=== PATIENT | female | born 1970 | race Two or more races ===

== ENCOUNTER 2017-08-29 11:45 | Emergency (ER) | payer OTHER ==
[~2017-08-29] VITALS: Ht 175.3 cm; Wt 74.8 kg
[~2017-08-29 11:45] MED LIST: CYMBALTA60 MG PO; INDERAL LA80 MG; INDERAL LA80 MG PO; NORFLEX100MG; TORADOL15 MG
== END 2017-08-29 13:48 | disposition home or self-care (01) ==
LOC: ER 11:45
DX: M25.522 Pain in left elbow (principal)